=== PATIENT | male | born 1990 | race Caucasian/White ===

== ENCOUNTER 2019-08-03 14:01 | Emergency (ER) | payer MEDICAID ==
[~2019-08-03] VITALS: Ht 172.7 cm; Wt 74.4 kg
[~2019-08-03 14:01] MED LIST: TRAM50TA2 PO
[2019-08-03 14:11] VITALS: BP 118/84
== END 2019-08-03 15:40 | disposition home or self-care (01) ==
LOC: ER 14:02
DX: S52.502A Unspecified fracture of the lower end of left radius, initial encounter for closed fracture (principal); X50.1XXA Overexertion from prolonged static or awkward postures, initial encounter; Y93.89 Activity, other specified; Y92.89 Other specified places as the place of occurrence of the external cause; Y99.9 Unspecified external cause status
CPT/HCPCS: 73110; 99283

== ENCOUNTER 2019-08-11 15:36 | Outpatient (CLI) | payer MEDICAID, OTHER ==
[2019-08-17] MEDS ORDERED: HYDR-3964 PO (14:56)
== END 2019-08-11 17:00 | disposition home or self-care (01) ==
LOC: ORTHO 15:36
PROVIDERS: ATTEND Orthopaedic Surgery
DX: S62.102D Fracture of unspecified carpal bone, left wrist, subsequent encounter for fracture with routine healing (principal); X58.XXXD Exposure to other specified factors, subsequent encounter
CPT/HCPCS: G0463

== ENCOUNTER 2019-08-19 12:38 | Day surgery (SDC) | payer MEDICAID, OTHER ==
[2019-08-17 15:57] LABS: BASOPHILS % (AUTO) 0.4 % (0-1); EOSINOPHILS # (AUTO) 0.4 X10'3 (0-0.9); EOSINOPHILS % (AUTO) 5.6 % (0-6); LYMPHOCYTES # (AUTO) 1.9 X10'3 (1.1-4.8); LYMPHOCYTES % (AUTO) 30.1 % (21-51); MEAN CORPUSCULAR HEMOGLOBIN 28.7 PG (27.0-31.0); MEAN CORPUSCULAR HGB CONC 33.7 g/dL (33.0-36.5); MEAN CORPUSCULAR VOLUME 85.2 FL (78-98); MEAN PLATELET VOLUME 8.5 FL (7.4-10.4); MONOCYTES # (AUTO) 0.7 X10'3 (0-0.9); MONOCYTES % (AUTO) 10.3 % (2-12); NEUTROPHILS # (AUTO) 3.5 X10'3 (1.8-7.7); NEUTROPHILS % (AUTO) 53.6 % (42-75); PRE OP HEMATOCRIT 41.5 % (42.0-52.0); PRE OP PLATELET COUNT 240 X10'3 (140-440); RED BLOOD COUNT 4.87 X10'6 (4.70-6.10); RED CELL DISTRIBUTION WIDTH 13.7 % (11.5-14.5)
[2019-08-17 16:14] LABS: ALBUMIN 4.3 G/DL (3.4-5.0); ALBUMIN/GLOBULIN RATIO 1.4 (1.1-1.5); ALKALINE PHOSPHATASE 66 IU/L (46-116); BLOOD UREA NITROGEN 16 MG/DL (7-18); BUN/CREATININE RATIO 18.2 (5.4-32.0); CALCIUM 9.1 MG/DL (8.5-10.1); CHLORIDE 104 MMOL/L (99-107); CREATININE 0.88 MG/DL (0.60-1.10); PRE OP ALT 26 U/L (30-65); PRE OP ANION GAP 8 (8-16); PRE OP AST 19 U/L (10-37); PRE OP BILIRUB, TOTAL 0.5 MG/DL (0.0-1.0); PRE OP GLUCOSE 78 MG/DL (70-104); PRE OP POTASSIUM 3.6 MMOL/L (3.4-5.1); PRE OP SODIUM 141 MMOL/L (135-145); TOTAL PROTEIN 7.4 G/DL (6.4-8.2); eGFR > 90 ML/MIN
[~2019-08-19] VITALS: Ht 172.7 cm; Wt 71.3 kg
[2019-08-19] VITALS (10 sets, daily range): BP systolic 131–154; BP diastolic 63–99
[~2019-08-19 12:38] MED LIST changes: +Cefazolin 2GM/100ML NS IVPB 100 ML IV ONE; +HYDR-3964 PO; -TRAM50TA2 PO; +cefazolin/dext.iso 2gm/100ml 100 ML IV ONE; +famotidine 10mg tablet PO ONE; +famotidine 20mg tablet PO ONE; +ringers solution, lacted 1,000 ML IV SCH
[2019-08-19] MEDS ORDERED: HYDROcodone/acetaminophen 10/325mg tab PO ONE (13:40)
[2019-08-19] MEDS ORDERED: sevoflurane 250ml liquid IH ONE (15:16)
[2019-08-19] MEDS ORDERED: MIDAZolam 5mg/5ml vial ONE (15:21)
[2019-08-19] MEDS ORDERED: fentaNYL/PF 50MCG/1 ML 2ML syringe ONE ×2 (15:21→15:45)
[2019-08-19] MEDS ORDERED: ceFAZolin 1000mg inj ONE (16:58)
[2019-08-19] MEDS ORDERED: BUPIVAcaine/PF 2.5 mg/ml (0.25%) 30ml vial ONE (16:59)
[2019-08-19] MEDS ORDERED: ringers solution, lacted 1,000 ML IV SCH (17:07)
[2019-08-19] MEDS ORDERED: meperidine/PF 25mg/ml syringe IV PRN ×2 (17:10)
[2019-08-19] MEDS ORDERED: ondansetron/PF 4mg/2ml inj IV PRN (17:10)
[2019-08-19] MEDS ORDERED: morphine 4 MG/ML inj SYRINge IV PRN ×2 (17:10→18:15)
[2019-08-19] MEDS ORDERED: proCHLORperazine 10 MG/2 ml inj IV PRN (17:10)
[2019-08-19] MEDS ORDERED: ondansetron/PF 4mg/2ml inj ONE ×2 (17:27→17:30)
[2019-08-19] MEDS ORDERED: LIDOcaine 1%/PF 5ML 10 MG/ML VIAL ONE (17:27)
[2019-08-19] MEDS ORDERED: propofol inj 20 ML IV ONE (17:27)
[2019-08-19] MEDS ORDERED: meperidine/PF 50mg/ml syringe ONE (17:42)
[2019-08-19] MEDS: meperidine/PF 25mg/ml syringe IV PRN ×2 (17:55→17:57)
[2019-08-19] MEDS ORDERED: acetaminophen 1,000mg/100ml IV 100 ML IV ONE (17:55)
--- NOTE | 2019-08-19 17:55 | NUR ---
Received from OR via BED, accompanied by Anesthesiologist DR NAIR-- and report given by Anesthesiolgist. PATIENT A&OX4,C/O 06/18 PAIN SEE EMAR, V/S WNL, NEUROVASCULAR CHECKS INTACT, 20G PIV RUE, SCD ON, SPLINT DRESSING TO LEFT WRISTCDI EVELATED WITH ICE PACK AND PILLOWS
[2019-08-19] MEDS ORDERED: LORazepam 2 mg/ml vial IV ONE (18:05)
[2019-08-19] MEDS: morphine 4 MG/ML inj SYRINge IV PRN ×2 (18:05→18:17)
[2019-08-19] MEDS ORDERED: HYDROmorphone inj. 0.5 MG/0.5 ML DISP.SYRIN IV PRN ×2 (18:15)
[2019-08-19] MEDS ORDERED: MIDAZolam 5mg/ml 2ml vial IV ONE (18:20)
--- NOTE | 2019-08-19 19:15 | NUR ---
PATIENT A&OX4,C/O 12/17 PAIN STATES PAIN IS TOLERABLE AND WELL CONTROLLED NOW, V/S WNL, NEUROVASCULAR CHECKS INTACT, 20G PIV RUE D/C, SCD OFF, SPLINT DRESSING TO LEFT WRIST CDI EVELATED WITH ICE PACK AND SLING. I HAVE REVIEWED D/C INSTRUCTIONS WITH PATIENT AND FAMILY AND THEY HAVE VERBALIZED UNDERSTANDING. PATIENT D/C HOME WITH ALL BELONGINGS AND FAMILY GAVE TRANSPORT HOME.
== END 2019-08-19 19:15 | disposition home or self-care (01) ==
LOC: PAS 12:38
PROVIDERS: ATTEND Orthopaedic Surgery
DX: S52.552A Other extraarticular fracture of lower end of left radius, initial encounter for closed fracture (principal); G89.18 Other acute postprocedural pain; Z79.899 Other long term (current) drug therapy; X58.XXXA Exposure to other specified factors, initial encounter; Y93.89 Activity, other specified; Y92.89 Other specified places as the place of occurrence of the external cause; Y99.8 Other external cause status
CPT/HCPCS: 25607; 36415; 64417; 80053; 82948; 85025; C1713; J0131; J0690; J2060; J2175; J2250; J2270; J2405; J2704; J3010; J3490; J7120; A4215; A4618; A6449; A7000